=== PATIENT | male | born 1980 ===

== ENCOUNTER 2017-07-27 16:11 | Emergency (ER) | payer OTHER ==
[2017-07-27 16:49] VITALS: BP 129/75
[2017-07-27] MEDS ORDERED: Amoxicillin PO (*) 500 MG CAP PO ONE (18:15)
[2017-07-27] MEDS ORDERED: Acetaminophen TAB* 325 MG PO ONE (18:16)
--- NOTE | 2017-07-27 18:16 | UC ---
Dental HPI - HPI Summary HPI Summary: PT STATES R LOWER BACK TOOTH PAINFUL AND BAD FOR A VERY LONG TIME. OVER THE PAST COUPLE OF DAYS IT GOT WORSE AND THE AREA SWELLED TODAY. THINKS IS HAS AN ABSCESS. - History of Current Complaint Chief Complaint: UCDentalProblem Stated Complaint: DENTAL COMPLAINT Time Seen by Provider: 07/27/17 18:10 Hx Obtained From: Patient Onset/Duration: Gradual Onset Pain Intensity: 4 Aggravating Factor(s): Heat, Cold, Chewing Alleviating Factor(s): Nothing - Allergies/Home Medications Allergies/Adverse Reactions: Allergies Allergy/AdvReac Type Severity Reaction Status Date / Time No Known Allergies Allergy Verified 07/27/17 16:42 Home Medications: Home Medications Buprenorphine/Naloxone SL TAB* [Suboxone 8-2 mg SL TAB*] 2 tab.sl SL DAILY 07/27 [History Confirmed 07/27/17] PMH/Surg Hx/FS Hx/Imm Hx - Additional Past Medical History 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 - Surgical History Surgical History: Yes Surgery Procedure, Year, and Place: --2009 - Family History Known Family History: Positive: None - Social History Occupation: Employed Full-time Lives: Alone Alcohol Use: None Substance Use Type: Prescribed Substance Use Comment - Amount & Last Used: SUBOXONE Smoking Status (MU): Current Every Day Smoker Type: Cigarettes Amount Used/How Often: 3/4 PPD Length of Time of Smoking/Using Tobacco: 20 YRS - Immunization History Vaccination Up to Date: Yes Review of Systems Constitutional: Negative Skin: Negative Eyes: Negative ENT: Dental Pain Respiratory: Negative Cardiovascular: Negative Gastrointestinal: Negative Genitourinary: Negative Motor: Negative Neurovascular: Negative Musculoskeletal: Negative Neurological: Negative Psychological: Negative Is Patient Immunocompromised?: No All Other Systems Reviewed And Are Negative: Yes Physical Exam Triage Information Reviewed: Yes Appearance: Well-Appearing Vital Signs: Initial Vital Signs Temp 98.5 F 07/27/17 16:44 Pulse 77 07/27/17 16:44 Resp 16 07/27/17 16:44 BP 129/75 07/27/17 16:44 Pulse Ox 98 07/27/17 16:44 Vital Signs Reviewed: Yes Eyes: Positive: Conjunctiva Clear ENT: Positive: Pharynx normal, TMs normal. Negative: Nasal congestion, Nasal drainage Dental: Positive: Abscess @ - R lower anterior molar with dental decay. Neck: Positive: Supple, Nontender, No Lymphadenopathy Respiratory: Positive: Lungs clear, Normal breath sounds Cardiovascular: Positive: RRR, No Murmur Abdomen Description: Positive: Nontender, No Organomegaly, Soft Bowel Sounds: Positive: Present Musculoskeletal: Positive: ROM Intact Neurological: Positive: Alert Psychological: Positive: Age Appropriate Behavior Skin Exam: Normal Dental Complaint Course/Dx - Course Course Of Treatment: exam c/w dental abscess; however, nothing to I&D at this time. will tx with antibiotic and nsaid. pt called [facility] and left message for an appt. he is a pt of [facility] thus f/u [facility] may be an option. No ludwigs angina. - Differential Dx/Diagnosis Provider Diagnoses: Abscess R lower anterior molar. Decay R lower anterior molar. Discharge - Sign-Out/Discharge Documenting (check all that apply): Discharge/Admit/Transfer - Discharge Plan Condition: Stable Disposition: HOME Prescriptions: Amoxicillin PO (*) [Amoxicillin 875 MG (*)] 875 mg PO BID #20 tab Naproxen [Naprosyn 500 mg tab] 500 mg PO BID #10 tablet Patient Education Materials: Dental Abscess (ED) Referrals: JUSTIN Cook [Primary Care Provider] - If Needed Additional Instructions: FOLLOW UP [facility] OR [facility] NEXT AVAILABLE APPOINTMENT - Billing Disposition and Condition Condition: STABLE Disposition: HOME
== END 2017-07-27 18:30 | disposition home or self-care (01) ==
LOC: UCCORT 16:11
DX: K04.7 Periapical abscess without sinus (principal); K02.9 Dental caries, unspecified; F17.210 Nicotine dependence, cigarettes, uncomplicated
CPT/HCPCS: 99212; A9270-GY; G0463